=== PATIENT | female | born 1990 | race Two or more races ===

== ENCOUNTER → 2024-04-08 13:37 | Outpatient (CLI) | payer OTHER ==
[~2024-04-08 13:37] MED LIST: PANADOL EXTRA500 MG PO
== END | disposition home or self-care (01) ==
LOC: PRENATAL 13:37
PROVIDERS: ATTEND Obstetrics & Gynecology Maternal & Fetal Medicine
DX: O26.849 Uterine size-date discrepancy, unspecified trimester (principal); O36.8199 Decreased fetal movements, unspecified trimester, other fetus; Z3A.34 34 weeks gestation of pregnancy

== ENCOUNTER 2024-05-09 20:43 | Outpatient (CLI) | payer OTHER ==
[2024-05-09 20:44] VITALS: BP 113/74
[2024-05-09] MEDS ORDERED: PRENATAL TABLE1 EAC4 (21:36)
[2024-05-09 23:12] LABS: HEMATOCRIT 32.8 % (36.0-45.00); MEAN CELL VOLUME 94.6 fL (80.00-100.00); MEAN CORPUSCULAR HEMOGLOBIN 31.7 pg (27.00-32.0); MEAN CORPUSCULAR HGB CONC 33.5 g/dl (32.0-36.0); PLATELET COUNT 158 K/uL (150-450); RED BLOOD COUNT 3.47 M/uL (4.00-6.00); RED CELL DISTRIBUTION WIDTH 13.3 % (11.5-14.5); URINE APPEARANCE Clear; URINE BILIRRUBIN Negative (NEGATIVE); URINE BLOOD Negative; URINE COLOR Yellow; URINE GLUCOSE Negative (NEGATIVE); URINE KETONE Negative (NEGATIVE); URINE LEUKOCYTE Moderate; URINE NITRATE Negative; URINE PROTEIN Negative (NEGATIVE); URINE UROBILINOGEN 0.2 E.U./dl
[2024-05-09 23:17] LABS: URINE BACTERIA 441.8 uL (0.0-1933); URINE EPITHELIAL CELLS 52.7 uL (0.0-38.8)
[2024-05-09 23:21] LABS: URINE CAST 0.29 uL (0.0-1.40); URINE RBC 0.1 uL (0.0-20.8)
[2024-05-09 23:30] VITALS: BP 121/72
[2024-05-09 23:31] LABS: ALT/SGPT 17 U/L (12-78); AST/SGOT 14 U/L (15-37)
[2024-05-09 23:36] LABS: FIBRINOGEN 446 mg/dL (187.0-446.0); INR < 0.93; PARTIAL THROMBOPLASTIN TIME 22.8 SECONDS (22.0-34.0); PROTHROMBIN TIME 10.1 SECONDS (9.0-11.5)
[2024-05-10 03:00] VITALS: BP 107/66
[2024-05-10 06:07] VITALS: BP 103/64; O2SAT 99
[2024-05-10] MEDS ORDERED: SODIUM CHLORIDE 0.45 % 1,000 ML IV SCH (09:00)
[2024-05-10 11:12] VITALS: BP 118/76; O2SAT 100
[2024-05-10 15:10] VITALS: BP 105/64
[2024-05-10 15:26] VITALS: BP 105/64
== END 2024-05-10 15:30 | disposition home or self-care (01) ==
LOC: OBS/DEL 20:43
PROVIDERS: ATTEND Obstetrics & Gynecology
DX: O26.893 Other specified pregnancy related conditions, third trimester (principal); Z3A.38 38 weeks gestation of pregnancy

== ENCOUNTER 2024-05-12 05:47 | Inpatient (IN) | payer OTHER ==
[2024-05-12] VITALS (11 sets, daily range): BP systolic 96–132; BP diastolic 53–75; O2SAT 97
[~2024-05-12] VITALS: Ht 170.2 cm; Wt 91.2 kg
[~2024-05-12 05:47] MED LIST changes: +PRENATAL TABLE1 EAC4
[2024-05-12] MEDS ORDERED: PRENATAL TABLE1 EAC1 PO (06:46)
[2024-05-12] MEDS ORDERED: RINGERS SOLUTION,LACTATED 1,000 ML IV SCH (07:00)
[2024-05-12] MEDS ORDERED: OXYTOCIN 20 UNITS/500ML RL PIGGYBAG IV ONE (10:17)
[2024-05-12] MEDS ORDERED: OXYTOCIN 20 UNITS/500ML RL PIGGYBAG IV SCH (10:30)
[2024-05-12] MEDS ORDERED: OXYTOCIN 500 ML IV SCH (10:30)
[2024-05-12] MEDS ORDERED: ERYTHROMYCIN BASE OPHT 1GM EACH TUBE OP ONE (18:00)
[2024-05-12] MEDS ORDERED: OXYTOCIN 1,000 ML IV SCH (18:45)
[2024-05-12] MEDS ORDERED: ACETAMINOPHEN 500 MG GEL..CAP PO PRN (18:45)
[2024-05-12] MEDS ORDERED: CHLORHEXIDINE GLUCONATE 120 ML BOTTLE TP SCH (18:45)
[2024-05-12] MEDS ORDERED: CEFOXITIN SODIUM 1,000 MG VIAL IV ONE (19:00)
[2024-05-12] MEDS ORDERED: IBUprofen 400 MG TABLET PO ONE (19:00)
[2024-05-12] MEDS ORDERED: OXYTOCIN 20 UNITS/1000ML RL PIGGYBAG IV ONE (19:24)
[2024-05-12] MEDS ORDERED: SIMETHICONE 125 MG CAPSULE PO ONE (21:30)
[2024-05-13 00:29] VITALS: BP 117/72
[2024-05-13 00:40] LABS: HEMATOCRIT 33.8 % (36.0-45.00); HEMOGLOBIN 11.4 g/dL (12.0-15.00); MEAN CELL VOLUME 92.1 fL (80.00-100.00); MEAN CORPUSCULAR HEMOGLOBIN 31.1 pg (27.00-32.0); MEAN CORPUSCULAR HGB CONC 33.7 g/dl (32.0-36.0); PLATELET COUNT 179 K/uL (150-450); RED BLOOD COUNT 3.67 M/uL (4.00-6.00); RED CELL DISTRIBUTION WIDTH 13.2 % (11.5-14.5)
[2024-05-13 08:03] VITALS: BP 120/74
[2024-05-13] MEDS ORDERED: PNV,CALCIUM 72/IRON/FOLIC ACID 1 TAB TABLET PO SCH (09:00)
[2024-05-13 16:11] VITALS: BP 120/77
[2024-05-14 01:09] VITALS: BP 99/61
[2024-05-14 08:00] VITALS: BP 112/78
== END 2024-05-14 13:59 | disposition home or self-care (01) | DRG 807 ==
LOC: LDR 05:47 → OB/GYN 19:20
PROVIDERS: ADMIT Obstetrics & Gynecology; ATTEND Obstetrics & Gynecology
PROC: 10E0XZZ Delivery of Products of Conception, External Approach (ICD-10-PCS; principal; 2024-05-12)
PROC: 4A1HXCZ Monitoring of Products of Conception, Cardiac Rate, External Approach (ICD-10-PCS; 2024-05-12)
DX: O80 Encounter for full-term uncomplicated delivery (principal); Z37.0 Single live birth; Z3A.39 39 weeks gestation of pregnancy; Z20.822 Contact with and (suspected) exposure to COVID-19